=== PATIENT | female | born 1960 | race Caucasian/White ===

== ENCOUNTER 2020-06-29 12:47 | Outpatient (CLI) | payer OTHER, SELFPAY ==
--- NOTE | 2020-06-29 12:50 | ECG_ITS ---
Measurements Intervals [place] Rate: 99 P: 46 GA: 147 QRS: 55 QRSD: 96 T: 40 QT: 331 QTc: 426 Interpretive Statements SINUS RHYTHM POOR R WAVE PROGRESSION, ANTERIOR LEADS MINIMAL Q WAVES- INFERIOR LEADS BORDERLINE ST-T WAVE ABNORMALITY- INF/HIGH LAT LEADS BORDERLINE ECG Electronically Signed On 06-29-2020 13:02:44 CDT by Brayan Willoughby D.O.
== END 2020-06-29 12:48 | disposition home or self-care (01) ==
LOC: ANHSURGERY 12:50
PROVIDERS: PCP Nurse Practitioner Family; Visit Provider Surgery Plastic and Reconstructive Surgery
DX: E78.5 Hyperlipidemia, unspecified (principal); Z87.898 Personal history of other specified conditions; R94.31 Abnormal electrocardiogram [ECG] [EKG]
CPT/HCPCS: 93005

== ENCOUNTER 2020-07-01 03:56 | Outpatient (CLI) | payer OTHER, SELFPAY ==
[2020-07-01 19:05] LABS: SARS-CoV-2 RNA PCR Negative
== END 2020-07-01 03:57 | disposition home or self-care (01) ==
LOC: ANHCOVIDDT 03:56
PROVIDERS: Anesthesiology; PCP Nurse Practitioner Family; Visit Provider Surgery Plastic and Reconstructive Surgery
DX: Z01.812 Encounter for preprocedural laboratory examination (principal); Z20.828 Contact with and (suspected) exposure to other viral communicable diseases
CPT/HCPCS: 87635; C9803; U0003

== ENCOUNTER 2020-07-03 00:03 | Day surgery (SDC) | payer OTHER, SELFPAY ==
[2020-05-04 15:48] VITALS: BMI 37.8
[2020-06-29 09:00] VITALS: BMI 37.8
[2020-07-03] VITALS (11 sets, daily range): BP systolic 137–161; BP diastolic 71–97; PULSE 99–117; RESP 12–20; TEMP 36.7; O2SAT 89–98
[2020-07-03] MEDS: LACTATED RINGERS 1,000 ML 30 ML IV CONT ×2 (06:24→10:30)
[2020-07-03 06:39] LABS: Urine Cotinine NEGATIVE
--- NOTE | 2020-07-03 07:12 | WPDANESEPPF ---
Anes - Initial Pre Proc Eval Procedure: Operation Date: 07/03/20 07:30 Proposed Procedures p Bilateral Breast Reduction - Koko Glaser MD Date/Time: 07/03/20 07:12 Surgeon: Koko Glaser MD Pre Op Diagnosis: macromastia Patient Data Age: 59 Gender: F Height: 5 ft 4 in Weight: 104.8 kg Last Vital Signs Temp 98.1 F 07/03/20 06:48 Pulse 103 H 07/03/20 06:48 Resp 20 07/03/20 06:48 BP 142/97 H 07/03/20 06:48 Pulse Ox 98 07/03/20 06:48 Allergies Allergy/AdvReac Type Severity Reaction Status Date / Time ampicillin Allergy Unknown Other Verified 07/03/20 06:42 Penicillins Allergy Unknown Other Verified 07/03/20 06:42 Home Medications Medication Instructions Recorded Confirmed Type atorvastatin 20 mg tablet 20 mg PO HS 12/12/19 07/03/20 History celecoxib 200 mg capsule 200 mg PO DAILY 12/12/19 07/03/20 History donepezil 5 mg tablet 5 mg PO HS 12/12/19 07/03/20 History escitalopram oxalate 10 mg tablet 20 mg PO DAILY 12/12/19 07/03/20 History qwrwctmyuuda-eztqdhgd-fccxfar-folic 1 tablet PO DAILY 12/12/19 07/03/20 History acid 400 mcg-vit K1 20 mcg tablet venlafaxine 150 mg 150 mg PO DAILY 12/12/19 07/03/20 History capsule,extended release 24 hr iodoform #12 each 05/06/20 Rx diphenhydramine-acetaminophen 2 tablet PO HS 06/29/20 07/03/20 History [Tylenol PM Extra Strength] Laboratory Tests 07/03/20 06:20 Cotinine Negative Patient hx anesthesia problems: none Family hx anesthesia problems: none PMFSH Past Medical History Medical History (Updated 07/02/20 @ 12:54 by Jose Alicea MD) Anxiety Depression Family history of diabetes mellitus (DM) Family history of high blood pressure Family history of lung cancer History of back pain Hyperlipidemia Surgical History Surgical History History of cholecystectomy History of left knee surgery History of tubal ligation Social History Social History Smoking packs per day: 1 Smoking cigarettes per day: 20.0 Years smoked: 40 Smoking pack-years: 40.00 Smoking status: Former smoker Tobacco type: cigarettes Additional smoking assessment comments: QUIT 09/2019 Alcohol intake: current Drinks per week: 2 Substance use: never Living arrangements: with family Sexual Orientation (if Verbalized by the Patient): Straight or Heterosexual Spiritual care concerns: No Anes - Eval Final PreProcedure Day of Procedure 07/03/20 07:12 Patient weight: morbidly obese Heart: regular rate and rhythm Lungs: clear to auscultation Airway: Mallampati scale class II Neurological: alert and oriented Last oral intake: >/= 8 hours ASA classification: III Emergent: no Anesthetic plan: proceed Anesthesia type and monitoring: general ETT and standard monitoring Informed Consent: The patient's anesthetic plan and its attendant risks and benefits were discussed with the patient/family/POA. Questions were solicited and answers provided to the satisfaction of the patient/family/POA.
--- NOTE | 2020-07-03 07:18 | WPDHPUPDATE1 ---
History and Physical Update Update Date/Time: 07/03/20 07:18 History and Physical has been reviewed, including an updated exam of the patient. There are NO changes in the patient's condition. Left breast previous abscess appears healed. No active signs of infection or concern. She understands the risks and options and that although it appears she is completely healed we can never be certain of how this affects her risks. She is willing to accept these risks and would like to proceed. Risks, benefits, and alternatives have been discussed and questions answered. Patient agrees to proceed with procedure.
--- NOTE | 2020-07-03 07:19 | PM.PROC ---
Procedure Note - Detailed Date of procedure: 07/03/20 Pre-op diagnosis: macromastia Post-op diagnosis: same Procedure performed: Bilateral reduction mammaplasty Description of procedure: She is here today for bilateral breast reduction. Previously and again today the risks, benefits, alternatives were discussed in extensive detail. I wanted her to be very realistic about the risks involved as well as expectations. We discussed aftercare and what to monitor for. She understands we can never guarantee final breast size and there will always be asymmetry. I was very upfront and honest about the risks of sensation change and even nipple loss (). Made sure answered all of her questions to her satisfaction today and consent was obtained. She was marked in the preoperative holding area with their verification. The patient was taken to the operating room placed supine on the operating table. Anesthesia was provided by anesthesiology. She was prepped and draped in a standard sterile fashion. A surgical time-out was taken. Stab incisions were made and I tumessed with a tumescent solution. I marked out the nipple-areolar complex at 42 mm. I then de-epithelialized the pedicle. The pedicle was well left well more than 2 cm in thickness. I then removed the inferior portion of the breast as well as the central keel to get shape based on preoperative planning. At this point copiously irrigated with saline solution and verified a strict hemostasis. I reapproximated the pillars using a 2-0 PDS as well as along the IMF. I tailor tacked the breast into place with walter. She was placed in a sitting position. I verified the nipple-areolar complex position based on preoperative markings, intraoperative measurements, and observation which were in full agreement. This nipple-areolar complex was marked at 42 mm in size. I then placed supine and de-epithelialized this. Nipple-areolar complex was inset with 3-0 Monocryl. I closed the vertical incision with 3-0 Monocryl in the IMF with 3-0 stratafix. Then everything was closed using a running subcuticular 4-0 Monocryl followed by Steri-Strips. A dressing was placed followed by surgical bra. Patient was awoke and taken to PACU without difficulty. All instrument sponge counts were correct at the end of the case. Anesthesia: GLMA Surgeon: Koko Glaser MD Estimated blood loss (mL): 75 Drains: No Packing: No Pathology: yes Complications: No immediate complications Condition: stable Disposition: PACU Findings: Bilateral inverted T superior medial pedicle. Tissue removed: Right 1398.4 grams Left 1298.6 grams.
[2020-07-03] MEDS: CLINDAMYCIN 900 MG/NS 50 ML 900 MG/50 ML PIGGYBACK 50 MG IVPB (07:26)
== END 2020-07-03 12:40 | disposition home or self-care (01) ==
PROVIDERS: PCP Nurse Practitioner Family; Visit Provider Surgery Plastic and Reconstructive Surgery
PROC: 0HBV0ZZ Excision of Bilateral Breast, Open Approach (ICD-10-PCS; CPT 19318; principal; 2020-07-03 07:30)
DX: N62 Hypertrophy of breast (principal); N60.82 Other benign mammary dysplasias of left breast; N60.81 Other benign mammary dysplasias of right breast; N60.32 Fibrosclerosis of left breast; N60.31 Fibrosclerosis of right breast; F41.8 Other specified anxiety disorders; E78.5 Hyperlipidemia, unspecified; Z87.891 Personal history of nicotine dependence; E66.01 Morbid (severe) obesity due to excess calories; Z68.39 Body mass index [BMI] 39.0-39.9, adult; Z79.899 Other long term (current) drug therapy
CPT/HCPCS: 19318; 80307; 88305; J0171; J1100; J1170; J2250; J2405; J2704; J3010; J7120